=== PATIENT | male | born 1980 | race Hispanic/Latino ===

== ENCOUNTER 2018-03-05 22:18 | Emergency (ER) | payer SELFPAY ==
--- NOTE | 2018-03-05 23:03 | EDM.PDOC ---
ED HPI GENERAL MEDICAL PROBLEM - General Chief Complaint: Back Pain or Injury Stated Complaint: PT HAS LOWER BACK PAIN Time Seen by Provider: 03/05/18 22:23 Source of Information: Reports: Patient History Limitations: Reports: No Limitations - History of Present Illness INITIAL COMMENTS - FREE TEXT/NARRATIVE: HISTORY AND PHYSICAL: History of present illness: 37-year-old male presenting to emergency department with chief complaint of lower back pain 1 month. Patient states that approximately 1 month ago he began to have some lower back pain. Pain is mostly in his lower back predominantly on the right side. Denies any known trauma, twisting, or injury. States that he feels like he maybe just woke up with it. States it has progressively gotten worse to the point where today he was unable to function. States that he has not been taking any medications but did have a dose of Aleve today without any significant improvement. States it has been difficult walking today. Denies any bowel or bladder incontinence. Pain does not radiate and he denies any decrease in strength, or sensation. Pain is worse with flexion and extension. On exam patient has tenderness to palpation in lower back approximately L5-S1 nominally in the right side. There is associated paraspinal muscle spasms significantly worse on the right than left. Positive straight leg raise. Pain worse with forward flexion and extension as well as left sided leaning. Neurovascular unremarkable. Review of systems: As per history of present illness and below otherwise all systems reviewed and negative. Past medical history: As per history of present illness and as reviewed below otherwise noncontributory. Surgical history: As per history of present illness and as reviewed below otherwise noncontributory. Social history: No reported history of drug or alcohol abuse. Family history: As per history of present illness and as reviewed below otherwise noncontributory. Physical exam: See above H&P HEENT: Atraumatic, normocephalic, pupils reactive, negative for conjunctival pallor or scleral icterus, mucous membranes moist, throat clear, neck supple, nontender, trachea midline. Lungs: Clear to auscultation, breath sounds equal bilaterally, chest nontender. Heart: S1S2, regular, negative for clicks, rubs, or JVD. Abdomen: Soft, nondistended, nontender. Negative for masses or hepatosplenomegaly. Negative for costovertebral tenderness. Pelvis: Stable nontender. Genitourinary: Deferred. Rectal: Deferred. Extremities: Atraumatic, negative for cords or calf pain. Neurovascular unremarkable. Neuro: Awake, alert, oriented. Cranial nerves II through XII unremarkable. Cerebellum unremarkable. Motor and sensory unremarkable throughout. Exam nonfocal. Diagnostics: [] Therapeutics: Solu-Medrol 25 mg IM, Toradol 60 mg IM 1, Flexeril 10 mg by mouth 1 Prescription Flexeril 10 mg by mouth 3 times a day #12 Impression: Lumbar back pain Lumbar back muscle spasm Plan: Patient did had improvement with Toradol. Did give him a prescription for Flexeril for his muscle spasms. He is going to follow-up on Tuesday with primary care provider and return to the emergency department if he has any new or worsening symptoms. Definitive disposition and diagnosis as appropriate pending reevaluation and review of above. Back Pain Score (Numeric/FACES): 8 - Related Data Allergies Allergy/AdvReac Type Severity Reaction Status Date / Time No Known Allergies Allergy Verified 03/05/18 22:43 Home Meds: Home Meds . [No Known Home Meds] 03/05/18 [History] Past Medical History - Past Health History Medical/Surgical History: Denies Medical/Surgical History Social & Family History - Tobacco Use Smoking Status *Q: Never Smoker ED ROS GENERAL - Review of Systems Review Of Systems: ROS reveals no pertinent complaints other than HPI. ED EXAM, GENERAL - Physical Exam Exam: See Below Course - Vital Signs Last Recorded V/S: Last Vital Signs Temp 97.8 F 03/05/18 22:50 Pulse 72 03/05/18 22:50 Resp 18 03/05/18 22:50 BP 193/94 H 03/05/18 22:50 Pulse Ox 98 03/05/18 22:50 - Orders/Labs/Meds Meds: Medications Discontinued Medications Generic Name Dose Route Start Last Admin Trade Name Freq PRN Reason Stop Dose Admin Cyclobenzaprine HCl 10 mg 03/05/18 23:25 03/06/18 00:12 Flexeril PO 03/05/18 23:26 10 mg ONETIME ONE Administration Ketorolac Tromethamine 60 mg 03/05/18 23:25 03/06/18 00:12 Toradol IM 03/05/18 23:26 60 mg ONETIME ONE Administration Methylprednisolone Sodium Succinate 125 mg 03/05/18 23:26 03/06/18 00:12 Solu-Medrol IM 03/05/18 23:27 125 mg ONETIME ONE Administration Departure - Departure Time of Disposition: 00:36 Disposition: Home, Self-Care 01 Condition: Good Clinical Impression: Lumbar back pain, Muscle spasm of back - Discharge Information Referrals: PCP,None [Primary Care Provider] - Forms: ED Department Discharge Additional Instructions: My general discharge The following information is given to patients seen in the emergency department who are being discharged to home. This information is to outline your options for follow-up care. We provide all patients seen in our emergency department with a follow-up referral. The need for follow-up, as well as the timing and circumstances, are variable depending upon the specifics of your emergency department visit. If you don't have a primary care physician on staff, we will provide you with a referral. We always advise you to contact your personal physician following an emergency department visit to inform them of the circumstance of the visit and for follow-up with them and/or the need for any referrals to a consulting specialist. The emergency department will also refer you to a specialist when appropriate. This referral assures that you have the opportunity for follow-up care with a specialist. All of these measure are taken in an effort to provide you with optimal care, which includes your follow-up. Under all circumstances we always encourage you to contact your private physician who remains a resource for coordinating your care. When calling for follow-up care, please make the office aware that this follow-up is from your recent emergency room visit. If for any reason you are refused follow-up, please contact the [facility] Emergency Department at and asked to speak to the emergency department charge nurse. [facility] [address] [place] [phone] Please call above number and make an appointment on Tuesday to follow-up with a primary care provider. Be sure to tell them that you were seen in the emergency department and they wish for you to be followed up with as soon as possible. Take medication as prescribed. Return to emergency department if any new or worsening symptoms.
[2018-03-05] MEDS ORDERED: Cyclobenzaprine 10 MG Tab PO ONE (23:25)
[2018-03-05] MEDS ORDERED: Ketorolac 60 MG/2 ML SDV IM ONE (23:25)
[2018-03-05] MEDS ORDERED: methylPREDNISolone Sodium Succinate 125 MG/2 ML SDV IM ONE (23:26)
== END 2018-03-06 00:53 | disposition home or self-care (01) ==
LOC: MW.ED 22:18
DX: M54.5 Low back pain (principal); M62.830 Muscle spasm of back
CPT/HCPCS: 96372; 99283; A9270; J1885; J2930

== ENCOUNTER 2018-03-16 14:35 | Emergency (ER) | payer SELFPAY ==
[2018-03-16] MEDS ORDERED: Sodium Chloride 0.9% 1,000 ML IV ONE (14:47)
[2018-03-16] MEDS ORDERED: Sodium Chloride 0.9% 10 ML Syringe FLUSH PRN (14:47)
[2018-03-16] MEDS ORDERED: Sodium Chloride 0.9% 2.5 ML Syringe FLUSH PRN (14:47)
[2018-03-16] MEDS ORDERED: Famotidine 20 MG/2 ML SDV IVPUSH ONE (14:47)
[2018-03-16] MEDS ORDERED: Aspirin 81 MG Tab.Chew PO ONE (14:47)
[2018-03-16] MEDS ORDERED: Alum Hydrox/Mag Hydrox/Simeth 15 ML, Metoclopramide 5 MG, Lidocaine 2% 5 ML PO ONE ×3 (14:47)
[2018-03-16] MEDS ORDERED: Ketorolac 30 MG/ML SDV IVPUSH ONE (14:48)
[2018-03-16] MEDS ORDERED: Ondansetron 4 MG/2 ML SDV IVPUSH ONE (14:48)
--- NOTE | 2018-03-16 15:01 | EDM.PDOC ---
ED HPI GENERAL MEDICAL PROBLEM - General Chief Complaint: Chest Pain Stated Complaint: CHEST PAIN Time Seen by Provider: 03/16/18 14:40 Source of Information: Reports: Patient History Limitations: Reports: No Limitations - History of Present Illness INITIAL COMMENTS - FREE TEXT/NARRATIVE: HISTORY AND PHYSICAL: []37-year-old male presenting with chest pain History of Present Illness: []EKG obtained he has been having this pain off and on for the last 3 days Review of Systems: As per history of present illness and below otherwise all systems reviewed and negative. Past medical history: As per history of present illness and as reviewed below otherwise noncontributory. Surgical history: As per history of present illness and as reviewed below otherwise noncontributory. Social history: No reported history of drug or alcohol abuse. Family history: As per history of present illness and as reviewed below otherwise noncontributory. Physical exam: Alert and oriented answering questions appropriately in full sentences without shortness of breath HEENT: Atraumatic, normocehpalic, pupils reactive, negative for conjunctival pallor or scleral icterus, mucous membranes moist, throat clear, neck supple, nontender, trachea midline. Lungs: Clear to auscultation, breath sounds equal bilaterally, chest non tender. Heart: S1S2, regular, negative for clicks, rubs, or JVD. Abdomen: Soft, nondistended, tender to right epigastric. Negative for masses or hepatossplenmegaly. Negative for costovertebral tenderness. Pelvis: Stable nontender. Genitourinary: Deferred. Rectal: Deferred Extremities: Atraumatic, negative for cords or calf pain. Neurovascular unremarkable. Neuro: Awake, alert, oriented. Cranial nerves II through XII unremarkable. Cerebellum unremarkable. Motor and sensory unremarkable throughout. Exam nonfocal. Discussed all lab work and ultrasounds with this patient verbalized understanding Diagnostics: []CBC CMP amylase lipase troponin chest x-ray ultrasound abdomen limited Therapeutics: []Toradol Impression: []Gastritis Plan: []Discharged Omeprazole 1 daily #30 Gaviscon 4 times a day when necessary abdominal pain Follow-up with your primary care provider you may need a HIDA scan if this pain continues Definitive disposition and diagnosis as appropriate pending reevaluation and review of above. Onset: Gradual Duration: Day(s): (3) Location: Reports: Abdomen Quality: Reports: Ache Severity: Moderate Improves with: Reports: None Worsens with: Reports: None Middle Chest Pain Score (Numeric/FACES): 9 - Related Data Allergies Allergy/AdvReac Type Severity Reaction Status Date / Time No Known Allergies Allergy Verified 03/05/18 22:43 Home Meds: Home Meds Mag Carb/Al Hydrox/Alginic Ac [Gaviscon Liquid] 5 ml PO Q4H PRN #1 bottle [Rx] Omeprazole 20 mg PO DAILY #30 cap.sr 03/16/18 [Rx] Past Medical History - Past Health History Medical/Surgical History: Denies Medical/Surgical History - Infectious Disease History Infectious Disease History: Reports: None Social & Family History - Family History Family Medical History: Noncontributory - Tobacco Use Smoking Status *Q: Never Smoker - Caffeine Use Caffeine Use: Reports: Coffee - Alcohol Use Days Per Week of Alcohol Use: 3 Number of Drinks Per Day: 2 Total Drinks Per Week: 6 - Recreational Drug Use Recreational Drug Use: No ED ROS GENERAL - Review of Systems Review Of Systems: ROS reveals no pertinent complaints other than HPI. ED EXAM, GENERAL - Physical Exam Exam: See Below EKG INTERPRETATION EKG Date: 03/16/18 Rhythm: NSR Comparison: NA - No Prior EKG Course - Vital Signs Last Recorded V/S: Last Vital Signs Temp 37.2 C 03/16/18 14:40 Pulse 95 03/16/18 14:40 Resp 18 03/16/18 14:40 BP 182/90 H 03/16/18 14:40 Pulse Ox 99 03/16/18 14:40 - Orders/Labs/Meds Orders: Active Orders 24 hr Category Date Time Status Cardiac Monitoring [RC] . DIRECTED Care 03/16/18 14:47 Active EKG Documentation Completion [RC] STAT Care 03/16/18 14:47 Active Oxygen Therapy [RC] ASDIRECTED Care 03/16/18 14:47 Active Abdomen Ltd [US] Stat Exams 03/16/18 14:48 Taken Chest 1V Frontal [CR] Stat Exams 03/16/18 14:47 Taken UA W/MICROSCOPIC [URIN] Stat Lab 03/16/18 14:47 Ordered Sodium Chloride 0.9% [Saline Flush] Med 03/16/18 14:47 Active 10 ml FLUSH ASDIRECTED PRN Sodium Chloride 0.9% [Saline Flush] Med 03/16/18 14:47 Active 2.5 ml FLUSH ASDIRECTED PRN Saline Lock Insert [OM.PC] Stat Oth 03/16/18 14:47 Ordered Medication Orders Sodium Chloride (Saline Flush) 10 ml FLUSH ASDIRECTED PRN PRN Reason: Keep Vein Open Sodium Chloride (Saline Flush) 2.5 ml FLUSH ASDIRECTED PRN PRN Reason: Keep Vein Open Labs: Laboratory Tests 03/16/18 03/16/18 03/16/18 Range/Units 15:09 15:09 15:09 WBC 7.61 (4.0-11.0) K/uL RBC 4.54 (4.50-5.90) M/uL Hgb 13.5 (13.0-17.0) g/dL Hct 40.2 (38.0-50.0) % MCV 88.5 (80.0-98.0) fL MCH 29.7 (27.0-32.0) pg MCHC 33.6 (31.0-37.0) g/dL RDW Std Deviation 42.7 (28.0-62.0) fl RDW Coeff of Devin 13 (11.0-15.0) % Plt Count 225 (150-400) K/uL MPV 10.30 (7.40-12.00) fL Neut % (Auto) 85.6 H (48.0-80.0) % Lymph % (Auto) 8.4 L (16.0-40.0) % Lyon % (Auto) 5.8 (0.0-15.0) % Eos % (Auto) 0.1 (0.0-7.0) % Baso % (Auto) 0.1 (0.0-1.5) % Neut # (Auto) 6.5 H (1.4-5.7) K/uL Lymph # (Auto) 0.6 (0.6-2.4) K/uL Lyon # (Auto) 0.4 (0.0-0.8) K/uL Eos # (Auto) 0.0 (0.0-0.7) K/uL Baso # (Auto) 0.0 (0.0-0.1) K/uL Nucleated RBC % 0.0 /100WBC Nucleated RBCs # 0 K/uL Sodium 138 (136-148) mmol/L Potassium 4.1 (3.5-5.1) mmol/L Chloride 101 (98-107) mmol/L Carbon Dioxide 25.1 (21.0-32.0) mmol/L BUN 12 (7.0-18.0) mg/dL Creatinine 1.1 (0.8-1.3) mg/dL Est Cr Clr Drug Dosing 109.89 mL/min Estimated GFR (MDRD) > 60.0 ml/min Glucose 95 (74-106) mg/dL Calcium 8.6 (8.5-10.1) mg/dL Total Bilirubin 0.4 (0.2-1.0) mg/dL AST 39 H (15-37) IU/L ALT 50 (14-63) IU/L Alkaline Phosphatase 40 L (46-116) U/L Troponin I < 0.050 (0.000-0.056) ng/mL Total Protein 7.7 (6.4-8.2) g/dL Albumin 3.7 (3.4-5.0) g/dL Globulin 4.0 H (2.0-3.5) g/dL Albumin/Globulin Ratio 0.9 L (1.3-2.8) Amylase 48 (25-115) U/L Lipase 129 (73-393) U/L H. pylori IgG Antibody NEGATIVE (NEG) Meds: Medications Generic Name Dose Route Start Last Admin Trade Name Freq PRN Reason Stop Dose Admin Sodium Chloride 10 ml 03/16/18 14:47 Saline Flush FLUSH ASDIRECTED PRN Keep Vein Open Sodium Chloride 2.5 ml 03/16/18 14:47 Saline Flush FLUSH ASDIRECTED PRN Keep Vein Open Discontinued Medications Generic Name Dose Route Start Last Admin Trade Name Freq PRN Reason Stop Dose Admin Aspirin 324 mg 03/16/18 14:47 03/16/18 15:10 Aspirin PO 03/16/18 14:48 324 mg ONETIME ONE Administration Al Hydroxide/Mg Hydroxide 15 0 ml 03/16/18 14:47 03/16/18 15:10 ml/ Metoclopramide HCl 5 mg/ PO 03/16/18 14:48 1 each Lidocaine HCl 5 ml ONETIME ONE Administration Famotidine 20 mg 03/16/18 14:47 03/16/18 15:09 Pepcid IVPUSH 03/16/18 14:48 20 mg ONETIME ONE Administration Sodium Chloride 1,000 mls @ 999 mls/hr 03/16/18 14:47 03/16/18 15:10 Normal Saline IV 03/16/18 15:47 999 mls/hr BOLUS ONE Administration Ketorolac Tromethamine 30 mg 03/16/18 14:48 03/16/18 15:09 Toradol IVPUSH 03/16/18 14:49 30 mg ONETIME ONE Administration Ondansetron HCl 4 mg 03/16/18 14:48 03/16/18 15:09 Zofran IVPUSH 03/16/18 14:49 4 mg ONETIME ONE Administration Departure - Departure Time of Disposition: 16:44 Disposition: Home, Self-Care 01 Condition: Good Clinical Impression: Gastritis Qualifiers: Gastritis type: unspecified gastritis Chronicity: acute Gastritis bleeding: without bleeding Qualified Code(s): K29.00 - Acute gastritis without bleeding Prescriptions: Mag Carb/Al Hydrox/Alginic Ac [Gaviscon Liquid] 5 ml PO Q4H PRN #1 bottle PRN Reason: Abdominal Pain Omeprazole 20 mg PO DAILY #30 cap.sr Forms: ED Department Discharge Additional Instructions: The following information is given to patients seen in the emergency department who are being discharged to home. This information is to outline your options for follow-up care. We provide all patients seen in our emergency department with a follow-up referral. The need for follow-up, as well as the timing and circumstances, are variable depending upon the specifics of your emergency department visit. If you don't have a primary care physician on staff, we will provide you with a referral. We always advise you to contact your personal physician following an emergency department visit to inform them of the circumstance of the visit and for follow-up with them and/or the need for any referrals to a consulting specialist. The emergency department will also refer you to a specialist when appropriate. This referral assures that you have the opportunity for followup care with a specialist. All of these measure are taken in an effort to provide you with optimal care, which includes your followup. Under all circumstances we always encourage you to contact your private physician who remains a resource for coordinating your care. When calling for followup care, please make the office aware that this follow-up is from your recent emergency room visit. If for any reason you are refused follow-up, please contact the [facility] emergency department at and asked to speak to the emergency department charge nurse. Discharged Omeprazole 1 daily #30 Gaviscon 4 times a day when necessary abdominal pain Follow-up with your primary care provider you may need a HIDA scan if this pain continues - My Orders Last 24 Hours: My Active Orders 03/16/18 14:47 Cardiac Monitoring [RC] . DIRECTED EKG Documentation Completion [RC] STAT Oxygen Therapy [RC] ASDIRECTED Chest 1V Frontal [CR] Stat UA W/MICROSCOPIC [URIN] Stat Sodium Chloride 0.9% [Saline Flush] 10 ml FLUSH ASDIRECTED PRN Sodium Chloride 0.9% [Saline Flush] 2.5 ml FLUSH ASDIRECTED PRN Saline Lock Insert [OM.PC] Stat 03/16/18 14:48 Abdomen Ltd [US] Stat - Assessment/Plan Last 24 Hours: My Active Orders 03/16/18 14:47 Cardiac Monitoring [RC] . DIRECTED EKG Documentation Completion [RC] STAT Oxygen Therapy [RC] ASDIRECTED Chest 1V Frontal [CR] Stat UA W/MICROSCOPIC [URIN] Stat Sodium Chloride 0.9% [Saline Flush] 10 ml FLUSH ASDIRECTED PRN Sodium Chloride 0.9% [Saline Flush] 2.5 ml FLUSH ASDIRECTED PRN Saline Lock Insert [OM.PC] Stat 03/16/18 14:48 Abdomen Ltd [US] Stat
[2018-03-16 15:52] LABS: CHLORIDE,CL 101 mmol/L (98-107); SODIUM,NA 138 mmol/L (136-148)
--- NOTE | 2018-03-17 12:30 | CR ---
EXAM DATE: 03/16/18 PATIENT'S AGE: 37 Patient: DAIN PAT Facility: [place], [place] Site . Site : 1980 Study: XRay Chest [id number] 3:50:46 PM Ordering Physician: Doctor Rodriguez Final Report: INDICATION: Chest pain/SOB TECHNIQUE: Chest 1 view COMPARISON: None FINDINGS: Cardiovascular and mediastinum: Heart size and vasculature are normal in caliber and appearance. Mediastinum is within normal limits. Lungs and pleural space: No focal consolidation. No sign of pleural effusion. No pneumothorax. Bones and soft tissues: No significant findings. IMPRESSION: No acute cardiopulmonary disease. Dictated by Logan Fermin MD @ 03/16/2018 4:01:49 PM Dictated by: Logan Fermin MD @ 03/16/2018 16:01:55 (Electronic Signature) Report Signed by Proxy. [facility]
--- NOTE | 2018-03-17 12:32 | US ---
EXAM DATE: 03/16/18 PATIENT'S AGE: 37 Patient: DAIN PAT Facility: [place], [place] Site . Site : 1980 Study: US Abdomen [id number] 3:53:07 PM Ordering Physician: Doctor Rodriguez Final Report: INDICATION: RUQ PAIN TECHNIQUE: Ultrasound abdomen limited. Sonographic images of the right upper quadrant were obtained using adorno-scale and color Doppler images. COMPARISON: None FINDINGS: Liver: Normal in size and echotexture. No masses. No intrahepatic biliary dilatation. Gallbladder: No stones or sludge. Partially contracted. No pericholecystic fluid. Common bile duct: 3 mm. Pancreas: Obscured. Right kidney: size cm. Normal echotexture and cortex. No masses, stones, or hydronephrosis. Vasculature: Proximal abdominal aorta and IVC are normal. IMPRESSION: No acute abnormality. Dictated by Logan Fermin MD @ 03/16/2018 4:04:57 PM Dictated by: Logan Fermin MD @ 03/16/2018 16:05:05 (Electronic Signature) Report Signed by Proxy. [facility]
== END 2018-03-16 17:08 | disposition home or self-care (01) ==
LOC: MW.ED 14:35
DX: K29.00 Acute gastritis without bleeding (principal); Z79.899 Other long term (current) drug therapy
CPT/HCPCS: 36415; 71045; 76705; 80053; 82150; 83690; 84484; 85025; 86677; 93005; 96361; 96374; 96375; 99285; A9270; J1885; J2405; J3490; J7040